=== PATIENT | male | born 1960 | race Caucasian/White ===

== ENCOUNTER 2018-06-23 07:55 | Emergency (ER) | payer OTHER ==
[~2018-06-23] VITALS: Ht 165.1 cm; Wt 104.3 kg
[2018-06-23 08:04] VITALS: BP 98/61
[2018-06-23] MEDS ORDERED: ULTRAM 50MG TAB50 MG PO (08:08)
[2018-06-23] MEDS ORDERED: AMOXICILLIN 50500 MG PO (08:08)
== END 2018-06-23 08:18 | disposition home or self-care (01) ==
LOC: M.ERS 07:55
DX: K02.9 Dental caries, unspecified (principal)

== ENCOUNTER 2020-04-28 05:15 | Emergency (ER) | payer OTHER ==
[~2020-04-28] VITALS: Ht 165.1 cm; Wt 104.3 kg
[~2020-04-28 05:15] MED LIST: AMOXICILLIN 50500 MG PO; HYDROCODON-ACE1 EAC7 PO; ULTRAM 50MG TAB50 MG PO; ZOFRAN4 MG PO
[2020-04-28 05:51] LABS: URINE BILIRUBIN NEGATIVE (Negative); URINE BLOOD 3+ (Negative); URINE CLARITY CLEAR; URINE COLOR YELLOW; URINE GLUCOSE-RANDOM NEGATIVE (Negative); URINE KETONES NEGATIVE (Negative); URINE LEUKOCYTES-REFLEX NEGATIVE (Negative); URINE NITRITE-REFLEX NEGATIVE (Negative); URINE PROTEIN NEGATIVE (Negative); URINE UROBILINOGEN 0.2 E.U./dl (0.2-1.0)
[2020-04-28 05:59] LABS: ABSOLUTE BASOPHILS 0.1 thou/uL (0.0-0.2); ABSOLUTE EOSINOPHILS 0.2 thou/uL (0.0-0.7); ABSOLUTE LYMPHOCYTES 1.6 thou/uL (0.8-5.3); ABSOLUTE NEUTROPHILS 4.4 thou/uL (1.6-8.1); BASOPHILS 1.1 %; EOSINOPHILS 2.4 %; HEMATOCRIT 43.9 % (42.0-52.0); HEMOGLOBIN 15.3 gm/dL (14.0-18.0); LYMPHOCYTES 22.6 %; MCH 31.9 pg (26.0-34.0); MCHC 34.9 g/dL (28.0-37.0); MCV 91.5 fL (80.0-100.0); MONOCYTES 13.6 %; MPV 7.9 fl. (7.2-11.1); NUCLEATED RBCS 0 /100WBC; PLATELET COUNT* 200 thou/uL (150-400); POLYS 60.3 %; RDW-CV 12.8 % (10.5-14.5); WBC 7.3 thou/uL (4.0-11.0)
[2020-04-28 06:02] LABS: BACTERIA-REFLEX 1-9 Few /HPF (None Seen); CRYSTALS None Seen /LPF (None Seen); HYALINE CASTS 0-3 Few /LPF (None Seen); MUCUS 0-3 Light strn/LPF (None Seen); SQUAMOUS 0-3 Few /LPF (0-3); URINE RBC 3-10 Few /HPF (0-2); URINE WBC-REFLEX 0-5 Rare /HPF (0-5)
[2020-04-28 06:26] LABS: CALCIUM 8.9 mg/dL (8.5-10.1); CREATININE 1.4 mg/dL (0.6-1.3); POTASSIUM 3.9 mmol/L (3.5-5.1)
[2020-04-28 06:31] LABS: ALBUMIN 3.5 g/dL (3.4-5.0); TOTAL BILIRUBIN 0.4 mg/dL (<0.1-1.0); TOTAL PROTEIN 6.7 g/dL (6.4-8.2)
[2020-04-28] MEDS ORDERED: IBUPROFEN 800800 M1 PO (07:07)
[2020-04-28] MEDS ORDERED: FLOMAX0.4 MG PO (07:07)
[2020-04-28] MEDS ORDERED: ZOFRAN ODT4 MG DISSOLVE (07:07)
[2020-04-28] MEDS ORDERED: NORCO 5-325 TA1 EAC2 PO (07:07)
[2020-04-28 08:32] VITALS: BP 138/80
== END 2020-04-28 08:34 | disposition home or self-care (01) ==
LOC: M.ERS 05:15
PROVIDERS: Family Medicine
DX: N20.0 Calculus of kidney (principal); Z91.030 Bee allergy status